=== PATIENT | male | born 1995 | race Caucasian/White ===

== ENCOUNTER 2019-05-13 21:04 | Emergency (ER) | payer BC ==
[2019-05-13] MEDS ORDERED: EPINEPHRINE 1 MG/ML 1 ML VIAL IM ONE (21:18)
[2019-05-13] MEDS ORDERED: predniSONE TAB* 20 MG PO ONE (21:18)
[2019-05-13] MEDS ORDERED: diPHENhydraMINE IV* 50 MG/ML 1 ml VIAL (BENADRYL) IV ONE (21:18)
--- NOTE | 2019-05-13 21:25 | ED ---
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 Patient was working outside and immediately after the sting had hives on his back. The patient rates the pain 0/10 in severity. Symptoms aggravated by nothing. Symptoms alleviated by nothing. Patient reports subjective dyspnea. - History of Current Complaint Chief Complaint: EDAllergicReaction Time Seen by Provider: 05/13/19 21:18 Stated Complaint: ALLERGIC REACTION PER PT Hx Obtained From: Patient Onset/Duration: Started Minutes Ago - 30 minutes, Atraumatic - Bee sting Timing: Constant Onset Severity: Mild Current Severity: None Pain Intensity: 0 Pain Scale Used: 0-10 Numeric Skin Location: Other: - Back Character: Hives Aggravating Symptom(s): Nothing Alleviating Symptom(s): Nothing Related History: Insect Bite/Sting - Bee - Allergy/Home Medications Allergies/Adverse Reactions: Allergies Allergy/AdvReac Type Severity Reaction Status Date / Time No Known Allergies Allergy Verified 01/28/16 12:41 PMH/Surg Hx/FS Hx/Imm Hx Endocrine/Hematology History: Denies: Hx Diabetes Cardiovascular History: Denies: Hx Hypertension, Hx Pacemaker/ICD History: Denies: Hx Dialysis, Hx Renal Disease Sensory History: Denies: Hx Hearing Aid Psychiatric History: Denies: Hx Panic Disorder - Surgical History Surgery Procedure, Year, and Place: LEFT THUMB; LEFT ANKLE Infectious Disease History: No Infectious Disease History: Denies: Traveled Outside the [place] in Last 30 Days - Family History Known Family History: Negative: Hypertension, Diabetes - Social History Alcohol Use: Occasionally Hx Substance Use: No Substance Use Type: Reports: None Hx Tobacco Use: No Smoking Status (MU): Never Smoked Tobacco Review of Systems Respiratory: Other - Subjective dyspnea Skin: Other - Subjective hives All Other Systems Reviewed And Are Negative: Yes Physical Exam - Summary Physical Exam Summary: Appearance: Well-appearing, Well-nourished, lying in bed comfortable Skin: scattered urticaria on back Eyes: sclera anicteric, no conjunctival pallor ENT: mucous membranes moist Neck: deferred Respiratory: No signs of respiratory distress Cardiovascular: Appears well perfused, pulses are nml Abdomen: deferred Musculoskeletal: Moving all 4 extremities without obvious discomfort Neurological: Awake and alert, mentation is normal, speech is fluent and appropriate Psychiatric: affect is normal, does not appear anxious or depressed Triage Information Reviewed: Yes Vital Signs On Initial Exam: Initial Vitals Temp Pulse Resp BP Pulse Ox 97.2 F 67 18 155/84 100 05/13/19 21:05 05/13/19 21:05 05/13/19 21:05 05/13/19 21:05 05/13/19 21:05 Vital Signs Reviewed: Yes Diagnostics - Vital Signs Vital Signs Temp Pulse Resp BP Pulse Ox 05/13/19 21:05 97.2 F 67 18 155/84 100 - Laboratory Lab Statement: Any lab studies that have been ordered have been reviewed, and results considered in the medical decision making process. Re-Evaluation - Re-Evaluation First Eval Re-Evaluation Time: 23:15 Change: Improved Comment: Patient reports feeling better. Patient will be discharged home with dx of bee sting and urticaria. I gave strict precautions for the patient to return to the ER if he developes symptoms of anaphylaxis. Patient understands and agrees with this plan. 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 In the ED course, patient received Benadryl, Adrenalin, and Deltasone. Upon re-evalation, patient reports feeling better. Patient will be discharged home with dx of bee sting and urticaria. I gave strict precautions for the patient to return to the ER if he developes symptoms of anaphylaxis. Patient understands and agrees with this plan. - Diagnoses Provider Diagnoses: Bee sting reaction, Urticaria Discharge - Sign-Out/Discharge Documenting (check all that apply): Patient Departure - Discharge Patient Received Moderate/Deep Sedation with Procedure: No - Discharge Plan Condition: Good Disposition: HOME Prescriptions: EPINEPHrine [Epipen 2-Tin] 0.3 mg IM ONCE PRN #1 inj PRN Reason: Allergy Symptoms predniSONE TAB* [Deltasone 20 MG TAB*] 40 mg PO DAILY #6 tab Patient Education Materials: Urticaria (ED), Insect Bite or Sting (ED) Referrals: Raoul Dewitt MD [Primary Care Provider] - If Needed Additional Instructions: This hives may wax and wane over the next few days, but will generally respond to antihistamines like benadryl, claritin or zyrtec. - Attestation Statements Document Initiated by Scribe: Yes Documenting Scribe: Jimmy Castillo Provider For Whom Scribe is Documenting (Include Credential): Gilberto Fuentes MD Scribe Attestation: I, Jimmy Castillo, scribed for Gilberto Fuentes MD on 05/13/19 at [id number]. Status of Scribe Document: Ready
[2019-05-13 23:39] VITALS: BP 104/70
== END 2019-05-13 23:38 | disposition home or self-care (01) ==
LOC: ED 21:04
DX: T63.441A Toxic effect of venom of bees, accidental (unintentional), initial encounter (principal); L50.9 Urticaria, unspecified; Y92.9 Unspecified place or not applicable
CPT/HCPCS: 96372; 96374; 99284; J1200; J7512